=== PATIENT | male | born 1940 | race Caucasian/White ===

== ENCOUNTER 2020-05-11 18:07 | Inpatient (IN) | payer MEDICARE, BC ==
[2020-05-11 20:27] LABS: ANION GAP 7.5 mEq/L (7-13); CHLORIDE,CL 105 mmol/L (98-107); SODIUM,NA 142 mmol/L (136-145)
[2020-05-11] MEDS ORDERED: Morphine 2 MG/ML SYRINGE IVPUSH PRN (21:36)
[2020-05-11] MEDS ORDERED: oxyCODONE 5 MG Tab PO PRN (21:36)
[2020-05-11] MEDS ORDERED: Sodium Chloride 0.9% 10 ML Syringe FLUSH PRN (21:36)
[2020-05-11] MEDS ORDERED: Ondansetron 4 MG Tab.DIS PO PRN (21:36)
[2020-05-11] MEDS ORDERED: Docusate Sodium 100 MG Cap PO PRN (21:36)
[2020-05-11] MEDS ORDERED: Ibuprofen 400 MG Tab PO PRN (21:41)
[2020-05-11] MEDS: Acetaminophen 325 MG Tab PO PRN (22:42)
--- NOTE | 2020-05-12 00:23 | EDM.PDOC ---
"ED HPI GENERAL MEDICAL PROBLEM - General Chief Complaint: Lower Extremity Injury/Pain Stated Complaint: RIGHT HIP, IMMOBILE Time Seen by Provider: 05/11/20 18:40 Source of Information: Reports: Patient, Family, RN, RN Notes Reviewed History Limitations: Reports: Physical Impairment - History of Present Illness INITIAL COMMENTS - FREE TEXT/NARRATIVE: Patient presents to ER with kristian with complaint of fracture of right pelvis. Kristian states the patient had a fall off a stool on April 28 when he was changing a light bulb. Patient did have imaging done at that time, has been following up in the clinic. Kristian states the patient is unable to bear any weight at this time, has had increased falls at home, stating approximately 5 this week. Patient is alert and oriented, states his right leg aches from time to time. No other complaints. Onset: Gradual Right Hip Pain Score (Numeric/FACES): 4 - Related Data Allergies Allergy/AdvReac Type Severity Reaction Status Date / Time chlorthalidone Allergy Bleeding Verified 05/11/20 18:20 Home Meds: Home Meds Acetaminophen 650 mg PO Q6HR PRN 11/07/15 [History] Furosemide 40 mg PO DAILY 11/07/15 [History] Losartan [Cozaar] 100 mg PO BID 11/07/15 [History] Sertraline HCl [Zoloft] 200 mg PO DAILY 11/07/15 [History] Tamsulosin [Flomax] 0.4 mg PO BEDTIME 11/07/15 [History] amLODIPine [Norvasc] 5 mg PO DAILY 11/07/15 [History] Diclofenac Sodium 1 applic TOP TID 05/11/20 [History] Finasteride 5 mg PO DAILY 05/11/20 [History] Ibuprofen 400 mg PO Q6HR PRN 05/11/20 [History] Isosorbide Mononitrate [Imdur] 30 mg PO DAILY 05/11/20 [History] Phosphorus #1 [Neutra-Phos] 1 tab PO BID 05/11/20 [History] Potassium Gluconate [Potassium] 99 mg PO BIDMEALS 05/11/20 [History] Triamcinolone Acetonide [Triamcinolone Acetonide 0.1% Crm] 1 applic TOP BEDTIME PRN 05/11/20 [History] Past Medical History Other HEENT History: reading glasses Cardiovascular History: Reports: Hypertension, PVD, Other (See Below) Other Cardiovascular History: bradycardia Respiratory History: Reports: Other (See Below) Other Respiratory History: URI Genitourinary History: Reports: BPH, Other (See Below) Other Genitourinary History: renal cyst, hematuria, nephrolithiasis, CKD stage 2 Musculoskeletal History: Reports: Other (See Below) Other Musculoskeletal History: R hip fx Endocrine/Metabolic History: Reports: Hyperparathyroidism - Infectious Disease History Infectious Disease History: Reports: Chicken Pox, Measles, Mumps, Rubella Social & Family History - Family History Family Medical History: No Pertinent Family History - Tobacco Use Tobacco Use Status *Q: Never Tobacco User Second Hand Smoke Exposure: No - Caffeine Use Caffeine Use: Reports: None - Living Situation & Occupation Living situation: Reports: , with Spouse Occupation: Retired Review of Systems - Review of Systems Review Of Systems: Comprehensive ROS is negative, except as noted in HPI. ED EXAM, GENERAL - Physical Exam Exam: See Below Exam Limited By: Physical Impairment General Appearance: Alert, WD/WN, No Apparent Distress Eye Exam: Bilateral Eye: EOMI, Normal Inspection Ears: Normal External Exam, Hearing Grossly Normal Nose: Normal Inspection Throat/Mouth: Normal Inspection, Normal Voice, No Airway Compromise Head: Atraumatic, Normocephalic Neck: Normal Inspection, Supple, Non-Tender, Full Range of Motion Respiratory/Chest: No Respiratory Distress, Lungs Clear, Normal Breath Sounds, No Accessory Muscle Use, Chest Non-Tender, Decreased Breath Sounds Cardiovascular: Normal Peripheral Pulses, Regular Rate, Rhythm, No Edema, No Gallop, No JVD, No Murmur, No Rub Peripheral Pulses: 2+: Radial (L), Radial (R), Dorsalis Pedis (L), Dorsalis Pedis (R) GI/Abdominal: Normal Bowel Sounds, Soft, Non-Tender (Male) Exam: Deferred Rectal (Males) Exam: Deferred Back Exam: Normal Inspection, Full Range of Motion Extremities: Normal Inspection, Leg Pain (Right), Limited Range of Motion (right leg) Neurological: Alert, Oriented, CN II-XII Intact, Normal Cognition Psychiatric: Normal Affect, Normal Mood Skin Exam: Warm, Dry, Intact, Normal Color, No Rash Lymphatic: No Adenopathy Course - Vital Signs Last Recorded V/S: Last Vital Signs Temp 98.5 F 05/11/20 21:36 Pulse 68 05/11/20 21:36 Resp 18 05/11/20 21:36 BP 155/68 H 05/11/20 21:36 Pulse Ox 96 05/11/20 21:36 - Orders/Labs/Meds Orders: Medication Orders Acetaminophen (Tylenol) 650 mg PO Q4H PRN PRN Reason: Pain (Mild 1-3)/fever Last Admin: 05/11/20 22:42 Dose: 650 mg Documented by: SUSAN Amlodipine Besylate (Norvasc) 5 mg PO DAILY [facility] Docusate Sodium (Colace) 100 mg PO BID PRN PRN Reason: Constipation Enoxaparin Sodium (Lovenox) 40 mg SUBCUT DAILY [facility] Finasteride (Proscar) 5 mg PO DAILY [facility] Furosemide (Lasix) 40 mg PO DAILY [facility] Ibuprofen (Motrin) 400 mg PO Q6HR PRN PRN Reason: Pain Isosorbide Mononitrate (Imdur) 30 mg PO DAILY [facility] Losartan Potassium (Cozaar) 100 mg PO BID [facility] Morphine Sulfate (Morphine) 2 mg IVPUSH Q2H PRN PRN Reason: Pain (severe 7-10) Non-Formulary Medication (Diclofenac Sodium [Diclofenac Sodium]) 1 applic TOP TID [facility] Ondansetron HCl (Zofran Odt) 4 mg PO Q4H PRN PRN Reason: nausea, able to take PO Oxycodone HCl (Oxycodone) 5 mg PO Q4H PRN PRN Reason: Pain (moderate 4-6) Sertraline HCl (Zoloft) 200 mg PO DAILY [facility] Sodium Chloride (Saline Flush) 10 ml FLUSH ASDIRECTED PRN PRN Reason: Keep Vein Open Sodium Phosphate (Neutra-Phos) 250 mg PO BID [facility] Tamsulosin HCl (Flomax) 0.4 mg PO BEDTIME [facility] Labs: Laboratory Tests 05/11/20 05/11/20 05/11/20 Range/Units 19:46 20:00 20:00 WBC 7.0 (5.0-10.0) 10^3/uL RBC 5.07 (4.6-6.2) 10^6/uL Hgb 15.0 (14.0-18.0) g/dL Hct 45.0 (40.0-54.0) % MCV 88.8 (80-100) fL MCH 29.6 (27.0-34.0) pg MCHC 33.3 (33.0-35.0) g/dL Plt Count 153 (150-450) 10^3/uL Neut % (Auto) 61.1 (42.2-75.2) % Lymph % (Auto) 24.5 (20.5-50.1) % Tompkins % (Auto) 11.1 H (2-8) % Eos % (Auto) 3.0 (1.0-3.0) % Baso % (Auto) 0.3 (0.0-1.0) % PT (9.0-12.0) SEC INR (0.9-1.2) Sodium 142 (136-145) mmol/L Potassium 3.5 (3.5-5.1) mmol/L Chloride 105 (98-107) mmol/L Carbon Dioxide 33 H (21-32) mmol/L Anion Gap 7.5 (7-13) mEq/L BUN 13 (7-18) mg/dL Creatinine 1.03 (0.70-1.30) mg/dL Est Cr Clr Drug Dosing TNP Estimated GFR (MDRD) > 60 BUN/Creatinine Ratio 12.6 (No establ ref range) Glucose 106 H (74-99) mg/dL Calcium 10.0 (8.5-10.1) mg/dL Total Bilirubin 0.8 (0.2-1.0) mg/dL AST 15 (15-37) U/L ALT 17 (16-63) U/L Alkaline Phosphatase 86 (46-116) U/L C-Reactive Protein 2.6 H (0.0-0.9) mg/dL Total Protein 7.3 (6.4-8.2) g/dL Albumin 3.1 L (3.4-5.0) g/dL Globulin 4.2 Albumin/Globulin Ratio 0.74 SARS CoV-2 RNA Rapid JEROME Negative (NEGATIVE) 05/11/20 Range/Units 20:00 WBC (5.0-10.0) 10^3/uL RBC (4.6-6.2) 10^6/uL Hgb (14.0-18.0) g/dL Hct (40.0-54.0) % MCV (80-100) fL MCH (27.0-34.0) pg MCHC (33.0-35.0) g/dL Plt Count (150-450) 10^3/uL Neut % (Auto) (42.2-75.2) % Lymph % (Auto) (20.5-50.1) % Tompkins % (Auto) (2-8) % Eos % (Auto) (1.0-3.0) % Baso % (Auto) (0.0-1.0) % PT 11.0 (9.0-12.0) SEC INR 1.2 (0.9-1.2) Sodium (136-145) mmol/L Potassium (3.5-5.1) mmol/L Chloride (98-107) mmol/L Carbon Dioxide (21-32) mmol/L Anion Gap (7-13) mEq/L BUN (7-18) mg/dL Creatinine (0.70-1.30) mg/dL Est Cr Clr Drug Dosing Estimated GFR (MDRD) BUN/Creatinine Ratio (No establ ref range) Glucose (74-99) mg/dL Calcium (8.5-10.1) mg/dL Total Bilirubin (0.2-1.0) mg/dL AST (15-37) U/L ALT (16-63) U/L Alkaline Phosphatase (46-116) U/L C-Reactive Protein (0.0-0.9) mg/dL Total Protein (6.4-8.2) g/dL Albumin (3.4-5.0) g/dL Globulin Albumin/Globulin Ratio SARS CoV-2 RNA Rapid JEROME (NEGATIVE) Meds: Medications Generic Name Dose Route Start Last Admin Trade Name Freq PRN Reason Stop Dose Admin Acetaminophen 650 mg 05/11/20 21:36 05/11/20 22:42 Tylenol PO 650 mg Q4H PRN Administration Pain (Mild 1-3)/fever Amlodipine Besylate 5 mg 05/12/20 09:00 Norvasc PO DAILY [facility] Docusate Sodium 100 mg 05/11/20 21:36 Colace PO BID PRN Constipation Enoxaparin Sodium 40 mg 05/12/20 09:00 Lovenox SUBCUT DAILY [facility] Finasteride 5 mg 05/12/20 09:00 Proscar PO DAILY [facility] Furosemide 40 mg 05/12/20 09:00 Lasix PO DAILY [facility] Ibuprofen 400 mg 05/11/20 21:41 Motrin PO Q6HR PRN Pain Isosorbide Mononitrate 30 mg 05/12/20 09:00 Imdur PO DAILY [facility] Losartan Potassium 100 mg 05/12/20 09:00 Cozaar PO BID [facility] Morphine Sulfate 2 mg 05/11/20 21:36 Morphine IVPUSH Q2H PRN Pain (severe 7-10) Non-Formulary Medication 1 applic 05/12/20 09:00 Diclofenac Sodium [Diclofenac Sodium] TOP TID [facility] Ondansetron HCl 4 mg 05/11/20 21:36 Zofran Odt PO Q4H PRN nausea, able to take PO Oxycodone HCl 5 mg 05/11/20 21:36 Oxycodone PO Q4H PRN Pain (moderate 4-6) Sertraline HCl 200 mg 05/12/20 09:00 Zoloft PO DAILY [facility] Sodium Chloride 10 ml 05/11/20 21:36 Saline Flush FLUSH ASDIRECTED PRN Keep Vein Open Sodium Phosphate 250 mg 05/12/20 09:00 Neutra-Phos PO BID [facility] Tamsulosin HCl 0.4 mg 05/12/20 21:00 Flomax PO BEDTIME [facility] Discontinued Medications Generic Name Dose Route Start Last Admin Trade Name Freq PRN Reason Stop Dose Admin Non-Formulary Medication 99 mg 05/12/20 08:00 Potassium Gluconate [Potassium] PO BIDMEALS [facility] - Radiology Interpretation Free Text/Narrative:: MR of Right hip wo contrast: FROM 05/09/2020 PROCEDURE INFORMATION: Exam: MR Right Lower Extremity Joint Without Contrast; Hip Exam date and time: 05/09/2020 10:13 AM Age: 79 years old Clinical indication: Pain; Hip; Right; Additional info: R/O stress fracture, history of fall 2 wks ago TECHNIQUE: Imaging protocol: MR of the Right lower extremity joint without contrast. Exam focused on the hip. COMPARISON: No relevant prior studies available. FINDINGS: Bones and cartilage: A fracture involving the far lateral aspect of the right superior pubic ramus (series 701/images 4-10) has an equivocal nondisplaced extension into the anterior acetabulum inferiorly (series 701/image 10). The bone marrow has heterogeneous signal intensity. The marrow signal intensity is similar to muscle on T1-weighted sequences in small discontinuous regions, raising the possibility of non-physiologic bone marrow infiltration. The appearance of the marrow should be correlated with any clinically known marrow infiltrating process or anemia. Additional workup may be needed. Comparison with any prior MR imaging might be helpful to assess interval change. Joint spaces: No significant joint effusion. Labrum: Unremarkable. No tear. TENDONS: Tendons of iliopsoas group: Unremarkable. No evidence of tear. Tendons of medial compartment of thigh: Unremarkable. No evidence of tear. Tendons of lateral rotators of hip: Unremarkable. No evidence of tear. Tendons of gluteal group: Unremarkable. No evidence of tear. CURT VARGAS | Final Radiology Report CONFIDENTIALITY STATEMENT This report is intended only for use by the referring physician, and only in accordance with law. If you received this in error, call [phone]. Page 2 of 2 Muscles: Intramuscular feathery increased T2 signal involving the right gluteus juarez muscle suggests muscle strain (grade I muscle injury) or contusion. Edema involving the right hip adductor musculature is typical for strain. Soft tissues: Mild edema along the superior border of the gluteus juarez muscle appears posttraumatic. Bowel: Multiple colonic diverticula are present without evidence of diverti culitis. IMPRESSION: 1. Heterogeneous bone marrow signal that could represent nonphysiologic marrow infiltration. Clinical correlation with any known marrow infiltrating process or anemia would be hel pful. Comparison with prior MR imaging might also be helpful to establish interval change. 2. Nondisplaced fracture involving the far lateral aspect of the right superior pubic ramus with equivocal extension into the acetabulum. 3. Strain or contusion of the right gluteus juarez muscle (grade I muscle injury) with strain of the right hip adductor musculature. Thank you for allowing us to participate in the care of your patient. Dictated and Authenticated by: Madie Nguyễn MD 05/09/2020 11:40 AM Central Time ([place] & [place]) See radiologist report - Re-Assessments/Exams Free Text/Narrative Re-Assessment/Exam: 05/12/20 00:22 Discussed patient case with Dr. Briones who agreed to accept the patient for Acute inpatient admission. Departure - Departure Time of Disposition: 20:46 Disposition: Admitted As Inpatient 68 Condition: Fair Clinical Impression: Pelvic fracture Qualifiers: Encounter type: initial encounter Pelvic bone location: multiple parts Fracture type: closed Fracture alignment: with stable disruption of pelvic ring Qualified Code(s): S32.810A - Multiple fractures of pelvis with stable disruption of pelvic ring, initial encounter for closed fracture - Discharge Information *PRESCRIPTION DRUG MONITORING PROGRAM REVIEWED*: No *COPY OF PRESCRIPTION DRUG MONITORING REPORT IN PATIENT JOSEFINA: No Sepsis Event Note (ED) - Evaluation Sepsis Screening Result: No Definite Risk - Focused Exam Vital Signs: Vital Signs Temp Pulse Resp BP Pulse Ox 05/11/20 18:28 97.2 F 73 18 159/81 H 96"
--- NOTE | 2020-05-12 01:27 | HP ---
CHIEF COMPLAINT: Weakness and left hip pain. HISTORY OF PRESENT ILLNESS: The patient is a 79-year-old gentleman who was admitted through the emergency room because the patient is complaining of just being weak and also complaining of left hip pain and just not able to manage at home because of the pain and unable to bear weight on the left leg. Apparently, the patient had a fall 2 days ago while he was standing on a stool and fixing a light and he fell on the floor and he had an MRI on 05/09/2020, and this showed nondisplaced fracture involving lateral aspect of the left superior pubic ramus with equivocal extension into the acetabulum. There is also strain or contusion of the right gluteus juarez muscle, and there is heterogeneous bone marrow signal that could represent nonphysiologic marrow infiltration. Because of the above, and the patient unable to manage at home, the patient was then admitted for further evaluation and management. PAST MEDICAL HISTORY: Remarkable for hypertension, BPH, peripheral vascular disease. ALLERGIES: Chlorthalidone. REVIEW OF SYSTEMS: The patient denies any headache, chest pain, shortness of breath, fever, chills, abdominal pain, nor any other complaints. SOCIAL HISTORY: The patient is , lives with his . He is a nonsmoker and non-alcohol drinker. HOME MEDICATIONS: Amlodipine 5 mg daily,, Flomax 0.4 mg daily, Zoloft 200 mg daily, potassium gluconate 99 mg b.i.d., Neutra-Phos 1 tablet p.o. b.i.d., losartan 100 mg p.o. b.i.d., Imdur 30 mg daily, ibuprofen 400 mg q.6h p.r.n., Lasix 40 mg daily, finasteride 5 mg daily, Voltaren gel, and Tylenol. PHYSICAL EXAMINATION: General: The patient is very pleasant. He is alert and oriented, not in any acute distress. Vital Signs: Blood pressure is 159/81, pulse of 73, respirations of 18, temperature of 97.2, and saturation is 96% on room air. SHEENT: Normocephalic. There are pink palpebral conjunctivae. Sclerae are anicteric. No JVD. No lymphadenopathy. Neck: Supple. No C-spine tenderness. Heart: Regular rate and rhythm. Normal S1 and S2. No gallops. No rubs. Lungs: Equal bilaterally. No crackles, no wheezing. Abdomen: Soft and nontender. Bowel sounds positive. Extremities: Negative for any pedal edema. No calf tenderness. There is some reproducible tenderness with palpation on the left hip area. LABORATORY DATA: CBC is unremarkable. Comp panel: Carbon dioxide is 33, glucose is 106. The rest of the panel unremarkable. C-reactive protein is 2.6. SARS-CoV-2 RNA rapid test is negative. ADMITTING DIAGNOSES: 1. Left hip pain secondary to nondisplaced fracture of left superior pubic ramus with contusion of the gluteus juarez. 2. History of fall. 3. Generalized weakness. 4. Hypertension. 5. BPH. TREATMENT PLAN: The patient is going to be admitted to General Medicine floor. He will be resumed on his home medication, and he will be placed on narcotic analgesics for pain management, and PT and OT will be consulted. The rest of the management as necessary, and the patient is a full code. [facility] /[id number] [place]
[2020-05-12 06:56] LABS: CHLORIDE,CL 105 mmol/L (98-107); SODIUM,NA 144 mmol/L (136-145)
[2020-05-12] MEDS ORDERED: Non-Formulary Medication 1 Each (Potassium Gluconate [Potassium] 99 MG) PO SCH (08:00)
[2020-05-12] MEDS ORDERED: Potassium Chloride 10 MEQ Tab.ER PO ONE (08:11)
[2020-05-12] MEDS: Acetaminophen 325 MG Tab PO PRN (08:23)
[2020-05-12] MEDS ORDERED: Furosemide 40 MG Tab PO SCH (09:00)
[2020-05-12] MEDS ORDERED: Finasteride 5 MG Tab PO SCH (09:00)
[2020-05-12] MEDS ORDERED: Enoxaparin 40 MG/0.4 ML Syringe SUBCUT SCH (09:00)
[2020-05-12] MEDS ORDERED: Losartan 50 MG Tab PO SCH (09:00)
[2020-05-12] MEDS ORDERED: Phosphorus #1 250 MG Tab PO SCH (09:00)
[2020-05-12] MEDS ORDERED: Sertraline 50 MG Tab PO SCH (09:00)
[2020-05-12] MEDS ORDERED: Isosorbide Mononitrate 30 MG Tab.ER PO SCH (09:00)
[2020-05-12] MEDS ORDERED: amLODIPine 5 MG Tab PO SCH ×2 (09:00)
--- NOTE | 2020-05-12 11:21 | CT ---
PROCEDURE INFORMATION: Exam: CT Head Without Contrast Exam date and time: 05/12/2020 11:09 AM Age: 79 years old Clinical indication: Weakness, extremity; Right; Additional info: Stoke symptoms TECHNIQUE: Imaging protocol: Computed tomography of the head without contrast. Radiation optimization: All CT scans at this facility use at least one of these dose optimization techniques: automated exposure control; mA and/or kV adjustment per patient size (includes targeted exams where dose is matched to clinical indication); or iterative reconstruction. Other technique: STROKE PROTOCOL was implemented. COMPARISON: No relevant prior studies available. FINDINGS: Brain: Left frontal parietal convexity subdural hematoma measuring 2.5 cm in thickness with areas of increased and decreased attenuation consistent with acute and subacute subdural collection. There is effacement of the left frontal, parietal and occipital sulci. There is 9 mm of midline shift from left to right consistent with subfalcine herniation. Cerebral ventricles: No ventriculomegaly. Mass-effect upon the left lateral ventricle Bones/joints: Mild degenerative changes at the acromioclavicular joint space. Paranasal sinuses: Retention cyst versus polyp within the left sphenoid air cell Mastoid air cells: Visualized mastoid air cells are well aerated. Soft tissues: Unremarkable. IMPRESSION: 1. Left frontal parietal convexity subdural hematoma measuring 2.5 cm in thickness with areas of increased and decreased attenuation consistent with acute and subacute subdural collection. 2. There is effacement of the left frontal, parietal and occipital sulci. 3. There is 9 mm of midline shift from left to right consistent with subfalcine herniation. ASSESSMENT: ASPECTS (Carolyn Stroke Program Early CT Score) is 10.
--- NOTE | 2020-05-12 12:38 | PN ---
DATE: 05/12/2020 The patient had a CAT scan of the head because of the weakness on the right leg, and official report of the CAT scan of the head showed left frontal parietal complexity subdural hematoma measuring 2.5 cm in thickness with areas of increased and decreased attenuation consistent with acute and subacute subdural collection. There is also a 9 mm midline shift from left to right consistent with subfalcine herniation. This was discussed with the patient and I did talk with [facility] on-call, and results of the CAT scan was placed on PACS for the neurosurgeon to review this. He will be getting back with me if the patient will be accepted in [facility]. [facility] /[id number]
--- NOTE | 2020-05-12 14:04 | PN ---
DATE: 05/12/2020 I was able to talk to Dr. 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 b.i.d. and to stop the Lovenox for DVT prophylaxis. Then, once room becomes available in [facility], the patient will be transferred. The patient's current status is stable. [facility] /[id number] [place]
--- NOTE | 2020-05-12 15:39 | DISCH ---
FINAL DIAGNOSES: 1. Left subdural hematoma. 2. Right hip pain secondary to nondisplaced fracture of the right superior pubic ramus. 3. History of fall. 4. Hypertension. 5. Benign prostatic hypertrophy. BRIEF HISTORY OF PRESENT ILLNESS: The patient is a 79-year-old gentleman who was admitted through the emergency room because the patient was complaining of right hip pain and weakness. Apparently, the patient had a fall while changing a light bulb on 04/28/2020, and the patient had an MRI of the right hip on 05/09/2020, which showed nondisplaced fracture of the superior pubic ramus. Because of the patient's inability to bear weight on the right leg, the patient was admitted for pain management. While in the medical-surgical floor, the patient was also noted to have urinary incontinence and weakness of the right leg, and because of this, a CAT scan of the head was done, and CAT scan of the head showed a 2.5 cm left frontal parietal convexity subdural hematoma measuring 2.5 cm in thickness consistent with acute and subacute subdural collection. There is also effacement of the left frontal and parietal and occipital sulci, and there is a 9 mm midline shift from left to right consistent with subfalcine herniation. Because of this, a consultation with Neurosurgery in [facility] with Dr. Magaña was made and possible transfer. I did speak with Dr. Magaña and he mentioned that since there is no room that is available currently, that the patient can still wait to be transferred until the room is available in the next 24 to 48 hours. In the meantime, he advised that the patient be given dexamethasone 2 mg p.o. b.i.d. and to discontinue the Lovenox. The patient remained stable and the patient is going to be transferred to [facility] once the room becomes available. A room became available and i spoke with and he accepted the patient. Condition on transfer: stable [facility] /[id number] MTDD
[2020-05-12 16:50] VITALS: BP 108/57; PULSE 60
[2020-05-12] MEDS: Non-Formulary Medication 1 Each (Diclofenac Sodium [Diclofenac Sodium] 1 APPLIC) TOP SCH ×2 (17:17→17:18)
[2020-05-12] MEDS ORDERED: Tamsulosin 0.4 MG Cap.ER PO SCH (21:00)
[2020-05-12] MEDS ORDERED: Dexamethasone 2 MG Tab PO SCH (21:00)
--- NOTE | 2020-05-13 06:57 | PN ---
DATE: 05/12/2020 SUBJECTIVE: The patient is doing fairly well this morning, and the right hip pain is more or less controlled by his current pain medication. The patient denies any chest pain, shortness of breath, abdominal pain, nausea, vomiting, nor any other complaints. Blood pressure this morning though is running mild to moderately elevated, but he denies any other complaints. OBJECTIVE: Vital Signs: Blood pressure is 173/84, pulse 68, respirations of 16, and temperature of 98.1. Heart: Regular rate and rhythm. Normal S1 and S2. No gallops, no rubs. Lungs: Equal bilaterally. No crackles, no wheezing. Abdomen: Soft, nontender, bowel sounds positive. Extremities: Negative for any pedal edema. No calf tenderness. MEDICATIONS: Reviewed. PLAN: I am going to increase his amlodipine to 10 mg a day and we will continue the rest of his management and continue with his pain management. [facility] /[id number]
== END 2020-05-12 17:05 | DRG 965 ==
LOC: DL.ED 18:07 → DL.MS 20:40
PROVIDERS: ADMIT Internal Medicine; ATTEND Internal Medicine
DX: S32.810A Multiple fractures of pelvis with stable disruption of pelvic ring, initial encounter for closed fracture (principal); W19.XXXA Unspecified fall, initial encounter; R29.6 Repeated falls; S06.5X9A Traumatic subdural hemorrhage with loss of consciousness of unspecified duration, initial encounter; I12.9 Hypertensive chronic kidney disease with stage 1 through stage 4 chronic kidney disease, or unspecified chronic kidney disease; N18.2 Chronic kidney disease, stage 2 (mild); I73.9 Peripheral vascular disease, unspecified; N40.0 Benign prostatic hyperplasia without lower urinary tract symptoms; E21.3 Hyperparathyroidism, unspecified; Z20.828 Contact with and (suspected) exposure to other viral communicable diseases; H54.7 Unspecified visual loss; N40.1 Benign prostatic hyperplasia with lower urinary tract symptoms; N39.498 Other specified urinary incontinence; Z91.81 History of falling; Z88.8 Allergy status to other drugs, medicaments and biological substances; Z79.899 Other long term (current) drug therapy; Z28.82 Immunization not carried out because of caregiver refusal; W08.XXXA Fall from other furniture, initial encounter
CPT/HCPCS: 36415; 80053; 85025; 85610; 86140; U0002; 70450; 80048; 97166-GO; 99285-25; A9270-GY; J1650

== ENCOUNTER 2023-02-23 18:02 | Emergency (ER) | payer MEDICARE, BC ==
[2023-02-23 18:53] VITALS: BP 157/92; PULSE 93
[2023-02-23] MEDS ORDERED: Acetaminophen 500 MG Tab PO ONE (19:06)
[2023-02-23] MEDS ORDERED: Sodium Chloride 0.9% 10 ML Syringe FLUSH PRN (19:06)
[2023-02-23] MEDS ORDERED: fentaNYL 100 MCG/2 ML SDV IVPUSH ONE (19:07)
[2023-02-23 19:22] LABS: BASOPHILS PERCENT AUTO 0.2 % (0.0-1.0); HEMATOCRIT 44.2 % (40.0-54.0); LYMPHOCYTES PERCENT AUTO 6.5 % (20.5-50.1); MEAN CORPUSCULAR HEMOGLOBIN 30.7 pg (27.0-34.0); MEAN CORPUSCULAR HGB CONC 33.9 g/dL (33.0-35.0); MEAN CORPUSCULAR VOLUME 90.6 fL (80-100); MONOCYTES PERCENT AUTO 7.5 % (2-8); NEUTROPHILS PERCENT AUTO 85.8 % (42.2-75.2); PLATELET COUNT,PLT 130 10^3/uL (150-450); RED BLOOD CELL COUNT 4.88 10^6/uL (4.6-6.2); WHITE BLOOD CELL COUNT,WBC 5.8 10^3/uL (5.0-10.0)
[2023-02-23 19:47] LABS: A/G RATIO 0.9; ALBUMIN 3.4 g/dL (3.4-5.0); ANION GAP 13.9 mEq/L (7-13); BILIRUBIN TOTAL 0.8 mg/dL (0.2-1.0); BUN/CREATININE RATIO 15.2 (No establ ref range); CALCIUM 9.9 mg/dL (8.5-10.1); CREATININE 0.92 mg/dL (0.70-1.30); EST CRCL DRUG DOSING (CG) 70.29 mL/min; POTASSIUM,K 3.9 mmol/L (3.5-5.1); PROTEIN TOTAL,TP 7.4 g/dL (6.4-8.2)
== END 2023-02-23 22:35 ==
LOC: DL.ED 18:02
DX: S72.142A Displaced intertrochanteric fracture of left femur, initial encounter for closed fracture (principal); I10 Essential (primary) hypertension; Z88.8 Allergy status to other drugs, medicaments and biological substances; Z79.899 Other long term (current) drug therapy; W18.30XA Fall on same level, unspecified, initial encounter
CPT/HCPCS: 36415; 73700-LT; 80053; 85025; 96374; 99284; 99285-25; A9270-GY; J3010; J3490